=== PATIENT | male | born 1960 | race Caucasian/White ===

== ENCOUNTER → 2024-07-16 07:37 | Outpatient (REF) | payer MEDICARE, SELFPAY | LOC: EMG 07:37 | PROVIDERS: ATTENDING PHYSICIAN Family Medicine | DX: R20.0 Anesthesia of skin (principal) | CPT/HCPCS: 95886; 95911 ==

== ENCOUNTER 2025-04-27 03:09 | Emergency (ER) | payer MEDICARE, SELFPAY ==
[2025-04-27 03:16] VITALS: BP 132/94
[2025-04-27 03:58] LABS: Urine Character Clear (Clear)
[2025-04-27 04:16] LABS: Urine White Cell 0-2 /HPF (0-5)
--- NOTE | 2025-04-27 06:12 | ED.GENMED ---
ED Provider Triage
<Cliff Proctor MD, Resident - Last Filed: 04/27/25 06:40>
-
Patient seen by provider in Triage?: Seen in Triage
History of Present Illness
<Tyler Borja, DO - Last Filed: 04/27/25 06:17>
General
Chief Complaint: Male Genito-Urinary Symptoms
Source: patient
Exam Limitations: none
Time Seen by Provider: 04/27/25 05:57
Nursing documentation reviewed up to this point in time: agreed with
History of Present Illness
History of Present Illness:
64-year-old male trouble urinating no urinary sugar 12 hours, so more the past never requiring catheter has been on Flomax previously by his PCP never seen urology no fever or chills no nausea no vomiting feeling better after catheter was placed,
<Cliff Proctor MD, Resident - Last Filed: 04/27/25 06:40>
History of Present Illness
History of Present Illness:
64-year-old male has trouble urinating no urinary sugar 12 hours, so more the past never requiring catheter has been on Flomax ( since last year for a similar presentation of acute urinary retention ) previously by his PCP. Does not see a urologist.
no fever or chills no nausea no vomiting feeling better after catheter was placed,
Past History
<Tyler Borja, DO - Last Filed: 04/27/25 06:17>
Past History
ED Past Medical History: Other (Anemia)
ED Past Surgical History: None
Social History
Tobacco: Non-smoker
Alcohol: Occasional
Drug: None
Personal:
Living: with family
Employment: Employed
Family History
Family History: Other (Cerebrovascular disease.)
Review of Systems
<Tyler Borja DO - Last Filed: 04/27/25 06:17>
Review of Systems
All Other Systems: Not applicable
EENT: Reports no symptoms
Respiratory: Reports no symptoms
Cardiac: Reports no symptoms
ABD/GI: Reports abdominal pain
: Reports difficulty voiding
Neurological: Reports no symptoms
Endocrine: Reports no symptoms
Phy Exam
<Tyler Borja, DO - Last Filed: 04/27/25 06:17>
Physical Exam
Physical Exam:
Physical Exam
General: no apparent distress, not acutely ill
Neck: No jaw
Heart: s1/s2 regular rate and rhythm, no murmur. equal radial pulses.
Lungs: no acute respiratory distress. clear bilaterally
Abdomen: Soft nontender Rodrigues draining clear yellow urine
Neuro: alert and oriented. no focal neurological deficits
Skin: no rash
Psychiatric: well kept. interactive and cooperative
Extremities: no edema.
Course
<Tyler Borja, DO - Last Filed: 04/27/25 06:17>
Orders/Labs/Results
Orders:
Orders
04/27/25 03:51
Urinalysis Reflex To Culture Urgent
Date Specimen was Collected: 04/27/25
Time Specimen was Collected: 03:48
Urine Microscopic Reflex Cult Urgent
Abnormal Lab Results
04/27/25
03:51
Ur Occult Blood Reflex 1+ A
(Negative)
Urine RBC 3-6 A /HPF
(0-2)
Urine Bacteria (Reflex) Few A
(Negative)
Vital Signs
Initial and Last Documented VS:
Initial Vital Signs
Temp Pulse Resp BP Pulse Ox
97.6 F 72 16 132/94 97
04/27/25 03:16 04/27/25 03:16 04/27/25 03:16 04/27/25 03:16 04/27/25 03:16
Last Documented Vital Signs
Temp Pulse Resp BP Pulse Ox
97.6 F 67 18 118/79 100
04/27/25 03:16 04/27/25 06:27 04/27/25 06:27 04/27/25 06:27 04/27/25 06:27
<Cliff Proctor MD, Resident - Last Filed: 04/27/25 06:40>
Orders/Labs/Results
Orders:
Orders
04/27/25 03:51
Urinalysis Reflex To Culture Urgent
Date Specimen was Collected: 04/27/25
Time Specimen was Collected: 03:48
Urine Microscopic Reflex Cult Urgent
Abnormal Lab Results
04/27/25
03:51
Ur Occult Blood Reflex 1+ A
(Negative)
Urine RBC 3-6 A /HPF
(0-2)
Urine Bacteria (Reflex) Few A
(Negative)
Vital Signs
Initial and Last Documented VS:
Initial Vital Signs
Temp Pulse Resp BP Pulse Ox
97.6 F 72 16 132/94 97
04/27/25 03:16 04/27/25 03:16 04/27/25 03:16 04/27/25 03:16 04/27/25 03:16
Last Documented Vital Signs
Temp Pulse Resp BP Pulse Ox
97.6 F 67 18 118/79 100
04/27/25 03:16 04/27/25 06:27 04/27/25 06:27 04/27/25 06:27 04/27/25 06:27
<Tyler Borja, DO - Last Filed: 04/27/25 06:17>
MDM/Problems Addressed
Differential Diagnosis Includes:
Retention UTI
MDM/Problems Addressed:
Urinary retention
<Cliff Proctor MD, Resident - Last Filed: 04/27/25 06:40>
MDM/Problems Addressed
Differential Diagnosis Includes:
Retention, UTI
MDM/Problems Addressed:
Urinary retention- catheter placed
UA unremarkable
<Tyler Borja, DO - Last Filed: 04/27/25 06:17>
*Pulse Oximetry
SaO2: 97
Oxygen Mode of Delivery: Room air
Patient hypoxic: no
*Critical Care Note
Total Time (30-74mins, 75-104mins- exclusive of procedures): Not Applicable
<Tyler Borja, DO - Last Filed: 04/27/25 06:17>
Update Note
Update Note:
Nurses notes reviewed 700 cc of urine after Rodrigues placed, patient tells me he immediately felt much better
ED Attending Note
<Tyler Borja, DO - Last Filed: 04/27/25 06:17>
-
Portions of this chart may have been created with voice recognition software.� Occasional wrong word or��sound alike� substitutions may have occurred due to the inherent limitations of voice recognition software.
Discharge Plan
Departure
Patient Disposition: Home (Routine Discharge)
Date of Disposition: 04/27/25
Time of Disposition: 06:15
Patient with high blood pressure during this ER visit?: No
Condition: Good
Discharge Problem:
Acute urinary retention
Instructions: How to Care for Your Rodrigues Catheter, Male, Urinary Retention (DC)
Prescriptions:
No Action
ferrous sulfate [iron] 325 MG tablet
325 mg PO DAILY
meclizine 25 MG tablet
25 mg PO Q8HPRN PRN (Reason: dizziness) Qty: 20 0RF
ondansetron [Zofran ODT] 8 MG tablet,disintegrating
8 mg PO TIDPRN Qty: 15 0RF
diazepam 5 MG tablet
5 mg PO TIDPRN PRN (Reason: vertigo) Qty: 20 0RF
Referrals:
Tone Hinson MD [Family Provider, Family Practice]
Vel Rothman MD [Active, Urology] - Follow up in 5-7 days
Activity Restrictions/Additional Instructions:
Call urology office to arrange follow-up care
Start Flomax 1 pill at bedtime
Interventions
Interventions:
*Risk Screen - Suicide Last Done: 04/27/25 03:16
*General Assessment Last Done: 04/27/25 06:31
*Neglect/Abuse Screening Last Done: 04/27/25 03:16
*ED- Fall Risk Assessment Last Done: 04/27/25 03:16
*ED COVID-19 Vaccine History Last Done: 04/27/25 03:16
*ED Influenza Vaccine History Last Done: 04/27/25 03:16
*Nursing Disposition Last Done: 04/27/25 06:31
ED-Male Genitourinary Assessment Last Done: 04/27/25 04:37
Discharge Date and Time
Discharge Date/Time: 04/27/25 06:32
Print Language: GREEK
[2025-04-27 06:27] VITALS: BP 118/79
== END 2025-04-27 06:32 | disposition home or self-care (01) ==
LOC: EMR 03:09
PROVIDERS: Emergency Medicine; EMERGENCY PHYSICIAN Emergency Medicine; FAMILY PHYSICIAN Family Medicine
DX: R33.9 Retention of urine, unspecified (principal)
CPT/HCPCS: 51702; 72192; 81003; 81015; 99283; 99284

== ENCOUNTER 2025-04-27 13:44 | Emergency (ER) | payer MEDICARE, SELFPAY ==
[2025-04-27 13:47] VITALS: BP 137/75
[2025-04-27 16:08] VITALS: BMI 25.9
[2025-04-27 16:13] VITALS: BP 118/80
--- NOTE | 2025-04-27 16:43 | ED.GENMED ---
History of Present Illness
General
Chief Complaint: Catheter/Tube Problem
Source: patient
Exam Limitations: none
Time Seen by Provider: 04/27/25 15:50
History of Present Illness
History of Present Illness:
Patient had an 18 [place] catheter placed at about 4 to 5 AM for urinary retention. Has been on Flomax for a year. Currently concerned because he is getting urine around the catheter and having episodes of spasm. No fever or chills. Some burning
in his urethra.
Past History
Past History
ED Past Medical History: Other (Anemia)
ED Past Surgical History: None
Social History
Tobacco: Non-smoker
Alcohol: Occasional
Drug: None
Personal:
Living: with family
Employment: Employed
Family History
Family History: Other (Cerebrovascular disease.)
Review of Systems
Review of Systems
All Other Systems: Not applicable
Constitutional: Denies fever or chills
Phy Exam
Physical Exam
Physical Exam:
GENERAL: Alert and oriented in no apparent distress
CARDIAC: Regular rate and rhythm
LUNGS: No respiratory distress
ABDOMEN: Soft, without focal tenderness or distention. No suprapubic distention. Catheter in place.
Clear urine in the bag. Penis appears normal. No urethral bleeding
NEUROLOGICAL: Alert and oriented , grossly non-focal
SKIN: Warm and dry
PSYCH: Normal and appropriate interaction.
Course
Orders/Labs/Results
Orders:
Orders
04/27/25 16:10
CT Pelvis W/o Iv Contrast Urgent
Comment:
Reason For Exam: Evaluate catheter position
04/27/25 17:11
Oxybutynin Chloride [Ditropan] 5 mg PO NOW STA
Vital Signs
Initial and Last Documented VS:
Initial Vital Signs
Temp Pulse Resp BP Pulse Ox
98.4 F 96 16 137/75 97
04/27/25 13:47 04/27/25 13:47 04/27/25 13:47 04/27/25 13:47 04/27/25 13:47
Last Documented Vital Signs
Temp Pulse Resp BP Pulse Ox
98.4 F 96 16 124/84 97
04/27/25 13:47 04/27/25 13:47 04/27/25 13:47 04/27/25 17:10 04/27/25 17:15
MDM/Problems Addressed
Differential Diagnosis Includes:
Discussed with urology. No reason to change the catheter. Confirm placement either by irrigation. However I have elected to do a CT scan to confirm placement. If in appropriate position will add antispasmodic and follow-up.
*Radiology
Radiology exam reviewed: radiology read reviewed (Balloon in position)
*Pulse Oximetry
SaO2: 97
Oxygen Mode of Delivery: Room air
Patient hypoxic: no
*Critical Care Note
Total Time (30-74mins, 75-104mins- exclusive of procedures): Not Applicable
Update Note
Update Note:
Discussed with urology. Recommend Ditropan and follow-up. Do not change catheter. Would not resolve issue. Discussed with patient
ED Attending Note
-
Portions of this chart may have been created with voice recognition software.� Occasional wrong word or��sound alike� substitutions may have occurred due to the inherent limitations of voice recognition software.
Discharge Plan
Departure
Patient with high blood pressure during this ER visit?: No
Discharge Problem:
Rodrigues catheter complications, Suspect bladder spasms
Instructions: How to Care for Your Rodrigues Catheter, Male
Prescriptions:
New
oxybutynin chloride 5 mg tablet
5 mg PO TID PRN (Reason: bladder spasms) Qty: 20 0RF
No Action
ferrous sulfate [iron] 325 MG tablet
325 mg PO DAILY
meclizine 25 MG tablet
25 mg PO Q8HPRN PRN (Reason: dizziness) Qty: 20 0RF
ondansetron [Zofran ODT] 8 MG tablet,disintegrating
8 mg PO TIDPRN Qty: 15 0RF
diazepam 5 MG tablet
5 mg PO TIDPRN PRN (Reason: vertigo) Qty: 20 0RF
Referrals:
Tone Hinson MD [Family Provider, Family Practice] - Follow up in 2-3 days
Activity Restrictions/Additional Instructions:
Call the urologist first thing Tuesday morning for close follow-up
The prescription for bladder spasm was sent to your pharmacy
Return tomorrow if the symptoms are not improving or return immediately with fever inability to urinate lower abdominal pain etc.
Interventions
Interventions:
*Risk Screen - Suicide Last Done: 04/27/25 13:47
*General Assessment Last Done: 04/27/25 16:09
*Neglect/Abuse Screening Last Done: 04/27/25 13:47
*ED- Fall Risk Assessment Last Done: 04/27/25 16:09
*ED COVID-19 Vaccine History Last Done: 04/27/25 16:09
*ED Influenza Vaccine History Last Done: 04/27/25 16:09
RJ-Cixsat-Okqugadpif Assessment Last Done: 04/27/25 16:09
ED-Male Genitourinary Assessment Last Done: 04/27/25 16:09
Discharge Date and Time
Print Language: BULGARIAN
[2025-04-27 17:10] VITALS: BP 124/84
[2025-04-27] MEDS: DITROPAN 5 MG PO (17:22)
[2025-04-27 18:00] VITALS: BP 121/86
== END 2025-04-27 18:56 | disposition home or self-care (01) ==
LOC: EMR 13:44
PROVIDERS: EMERGENCY PHYSICIAN Emergency Medicine; FAMILY PHYSICIAN Family Medicine
DX: T83.038A Leakage of other urinary catheter, initial encounter (principal); R33.9 Retention of urine, unspecified; Y73.2 Prosthetic and other implants, materials and accessory gastroenterology and urology devices associated with adverse incidents
CPT/HCPCS: 99284; 72192